=== PATIENT | male | born 1950 ===

== ENCOUNTER 2016-05-02 13:57 | Outpatient (CLI) | payer MEDICARE, OTHER ==
[2016-05-02 16:19] LABS: #Eosinphils 0.2 thou/uL (0.0-0.7); #Lymphocytes 1.5 thou/uL (1.20-3.40); #Monocytes 0.4 thou/uL (0.11-0.59); %Basophils 0.7 % (0.0-1.0); %Lymphocytes 29.8 % (21.0-51.0); %Monocytes 6.9 % (0.0-10.0); %Neutrophils 58.5 % (42.0-75.0); Hemoglobin 15.5 g/dL (14.0-18.0); Mean Corpuscular HGB CONC 34.5 g/dL (32.0-36.0); Mean Corpuscular Hemoglobin 31.6 pg (27.0-31.0); Mean Corpuscular Volume 91.7 fl (80.0-94.0); Mean Platelet Volume 7.9 fL (7.4-10.4); Platelet Count 225 thou/uL (130-400); RBC Distribution Width 11.2 % (11.5-14.5); Red Blood Cell (RBC) Count 4.91 mill/uL (4.70-6.10); White Blood Cell (WBC) Count 5.2 thou/uL (4.8-10.8)
[2016-05-02 16:37] LABS: ALT (SGPT) 13 U/L (0-55); AST (SGOT) 15 U/L (5-34); Albumin 3.9 g/dL (3.4-4.8); Alkaline Phosphatase 95 U/L (40-150); Anion Gap 13 mmol/L (10-20); BUN (Urea Nitrogen) 19 mg/dL (8.4-25.7); Bilirubin, Total 0.6 mg/dL (0.2-1.2); Calc. Creatinine Clearance 0 mL/min (70-130); Carbon Dioxide 27 mmol/L (23-31); Chloride 106 mmol/L (98-107); Estimated GFR-MDRD 67; Globulin 2.4 g/dL (2.4-3.5); Glucose 67 mg/dL (80-115); Protein, Total 6.3 g/dL (5.8-8.1); Sodium 142 mmol/L (136-145)
== END 2016-05-02 13:58 | disposition home or self-care (01) ==
LOC: LABLEX 13:57
PROVIDERS: ATTEND Family Medicine
DX: R03.0 Elevated blood-pressure reading, without diagnosis of hypertension (principal)
CPT/HCPCS: 80053; 85025

== ENCOUNTER 2016-05-04 09:14 | Outpatient (CLI) | payer MEDICARE, OTHER | END 2016-05-04 09:15 | LOC: LABLEX 09:14 | PROVIDERS: ATTEND Family Medicine | DX: R03.0 Elevated blood-pressure reading, without diagnosis of hypertension (principal) | CPT/HCPCS: 84443 ==

== ENCOUNTER 2016-08-11 11:34 | Outpatient (CLI) | payer MEDICARE, OTHER ==
[2016-08-11 16:34] LABS: Hemoglobin A1c 5.3 % (4.0-6.0)
[2016-08-11 16:37] LABS: Cardiac Risk 4.1 (Less than 4.5)
== END 2016-08-11 11:35 | disposition home or self-care (01) ==
LOC: LABLEX 11:34
PROVIDERS: ATTEND Family Medicine
DX: M79.672 Pain in left foot (principal); M79.671 Pain in right foot; R73.09 Other abnormal glucose; E78.1 Pure hyperglyceridemia
CPT/HCPCS: 80061; 83036